=== PATIENT | male | born 1940 | race Caucasian/White ===

== ENCOUNTER 2019-05-03 14:49 | Inpatient (IN) | payer OTHER, MEDICAID ==
[~2019-05-03] VITALS: Ht 177.8 cm; Wt 87.1 kg
--- NOTE | ~2019-05-03 | EKG ---
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
[2019-05-03 14:51] VITALS: BP 89/50
[2019-05-03] MEDS ORDERED: LYRICA150 MG PO (14:56)
[2019-05-03] MEDS ORDERED: NAPROSYN500 M1 PO (14:57)
[2019-05-03] MEDS ORDERED: AMITRIPTYLINE H50 M2 PO (14:57)
[2019-05-03] MEDS ORDERED: ZESTRIL40 MG PO (14:58)
[2019-05-03] MEDS ORDERED: HYDROCHLOROTH12.5 M1 PO (14:59)
[2019-05-03 15:33] LABS: ABSOLUTE LYMPHOCYTES 0.7 thou/uL (0.8-5.3); ABSOLUTE MONOCYTES 0.5 thou/uL (0.0-1.2); ABSOLUTE NEUTROPHILS 2.5 thou/uL (1.6-8.1); BASOPHILS 0.4 %; HEMATOCRIT 38.4 % (42.0-52.0); HEMOGLOBIN 13.1 gm/dL (14.0-18.0); LYMPHOCYTES 18.8 %; MCH 27.5 pg (26.0-34.0); MCHC 34.2 g/dL (28.0-37.0); MCV 80.3 fL (80.0-100.0); MONOCYTES 14.3 %; NUCLEATED RBCS 0 /100WBC; PLATELET COUNT* 113 thou/uL (150-400); POLYS 66.5 %; RBC 4.79 mil/uL (4.50-6.00); RDW-CV 15.1 % (10.5-14.5); WBC 3.7 thou/uL (4.0-11.0)
[2019-05-03 15:44] LABS: APTT 27.7 Seconds (25.0-31.3); PROTIME 10.5 Seconds (9.20-11.50)
[2019-05-03 15:46] LABS: CALCIUM 8.1 mg/dL (8.5-10.1); CREATININE 2.8 mg/dL (0.6-1.3)
[2019-05-03 15:55] LABS: ALBUMIN 3.6 g/dL (3.4-5.0); TOTAL BILIRUBIN 0.6 mg/dL (<0.1-1.0); TOTAL PROTEIN 7.6 g/dL (6.4-8.2)
[2019-05-03 18:00] VITALS: BP 88/38
[2019-05-03 18:01] LABS: INFLUENZA A ANTIGEN Positive (Negative); INFLUENZA B ANTIGEN Negative (Negative)
[2019-05-03 18:05] VITALS: BP 120/66
[2019-05-03 20:00] VITALS: BP 88/51
[2019-05-04 04:27] LABS: ABSOLUTE LYMPHOCYTES 1.2 thou/uL (0.8-5.3); ABSOLUTE MONOCYTES 0.3 thou/uL (0.0-1.2); ABSOLUTE NEUTROPHILS 0.7 thou/uL (1.6-8.1); BASOPHILS 0.4 %; EOSINOPHILS 0.7 %; HEMATOCRIT 30.3 % (42.0-52.0); LYMPHOCYTES 51.9 %; MCH 28.2 pg (26.0-34.0); MCHC 35.8 g/dL (28.0-37.0); MCV 78.7 fL (80.0-100.0); MONOCYTES 15.4 %; MPV 7.7 fl. (7.2-11.1); NUCLEATED RBCS 0 /100WBC; PLATELET COUNT* 86 thou/uL (150-400); POLYS 31.6 %; RBC 3.85 mil/uL (4.50-6.00); RDW-CV 14.9 % (10.5-14.5); WBC 2.2 thou/uL (4.0-11.0)
[2019-05-04 04:34] LABS: POTASSIUM 3.6 mmol/L (3.5-5.1)
[2019-05-04 04:39] LABS: ALBUMIN 2.9 g/dL (3.4-5.0); TOTAL BILIRUBIN 0.4 mg/dL (<0.1-1.0); TOTAL PROTEIN 5.9 g/dL (6.4-8.2)
[2019-05-04 04:42] LABS: HEMOGLOBIN 10.9 gm/dL (14.0-18.0)
[2019-05-04 07:51] VITALS: BP 85/51
[2019-05-04 16:00] VITALS: BP 125/43
[2019-05-05] VITALS: BP 89/44
[2019-05-05 08:10] VITALS: BP 129/62
[2019-05-05] MEDS ORDERED: TAMIFLU30 MG PO (11:15)
[2019-05-05 11:29] VITALS: BP 129/62
[2019-05-05 15:54] VITALS: BP 129/62
== END 2019-05-05 15:40 | disposition home or self-care (01) | DRG 865 ==
LOC: M.ERS 14:49 → M.ORTHSURG 16:52 → M.TBA-ER 16:52 → M.ORTHSURG 18:12 → M.3W 05-04 15:44
PROVIDERS: Emergency Medicine Emergency Medical Services; ADMIT Internal Medicine
DX: J10.2 Influenza due to other identified influenza virus with gastrointestinal manifestations (principal); R65.11 Systemic inflammatory response syndrome (SIRS) of non-infectious origin with acute organ dysfunction; N17.9 Acute kidney failure, unspecified; E44.1 Mild protein-calorie malnutrition; B02.29 Other postherpetic nervous system involvement; I10 Essential (primary) hypertension; D72.819 Decreased white blood cell count, unspecified; M19.90 Unspecified osteoarthritis, unspecified site; F32.9 Major depressive disorder, single episode, unspecified; Z87.891 Personal history of nicotine dependence; Z79.899 Other long term (current) drug therapy; Z68.27 Body mass index [BMI] 27.0-27.9, adult

== ENCOUNTER 2020-05-14 19:54 | Emergency (ER) | payer OTHER, MEDICAID ==
[~2020-05-14] VITALS: Ht 177.8 cm; Wt 83.9 kg
[~2020-05-14 19:54] MED LIST: AMITRIPTYLINE H50 M2 PO; HYDROCHLOROTH12.5 M1 PO; LYRICA150 MG PO; NAPROSYN500 M1 PO; TAMIFLU30 MG PO; ZESTRIL40 MG PO
[2020-05-14 20:34] LABS: ABSOLUTE EOSINOPHILS 0.1 thou/uL (0.0-0.7); ABSOLUTE LYMPHOCYTES 1.3 thou/uL (0.8-5.3); ABSOLUTE MONOCYTES 0.4 thou/uL (0.0-1.2); ABSOLUTE NEUTROPHILS 0.9 thou/uL (1.6-8.1); BASOPHILS 0.7 %; EOSINOPHILS 4.2 %; HEMATOCRIT 38.5 % (42.0-52.0); LYMPHOCYTES 49.5 %; MCH 28.2 pg (26.0-34.0); MCHC 33.7 g/dL (28.0-37.0); MCV 83.7 fL (80.0-100.0); MONOCYTES 12.8 %; MPV 7.5 fl. (7.2-11.1); NUCLEATED RBCS 0 /100WBC; PLATELET COUNT* 100 thou/uL (150-400); POLYS 32.8 %; RDW-CV 13.4 % (10.5-14.5); WBC 2.7 thou/uL (4.0-11.0)
[2020-05-14 20:38] LABS: CALCIUM 8.2 mg/dL (8.5-10.1); CREATININE 1.2 mg/dL (0.6-1.3); POTASSIUM 3.7 mmol/L (3.5-5.1)
[2020-05-14 20:43] LABS: ALBUMIN 3.9 g/dL (3.4-5.0); TOTAL BILIRUBIN 0.6 mg/dL (<0.1-1.0); TOTAL PROTEIN 6.9 g/dL (6.4-8.2)
[2020-05-14 20:44] LABS: URINE BILIRUBIN NEGATIVE (Negative); URINE BLOOD TRACE (Negative); URINE CLARITY CLEAR; URINE COLOR YELLOW; URINE GLUCOSE-RANDOM NEGATIVE (Negative); URINE KETONES NEGATIVE (Negative); URINE LEUKOCYTES-REFLEX NEGATIVE (Negative); URINE NITRITE-REFLEX NEGATIVE (Negative); URINE PROTEIN NEGATIVE (Negative); URINE SPECIFIC GRAVITY 1.025 (1.005-1.030); URINE UROBILINOGEN 0.2 E.U./dl (0.2-1.0)
[2020-05-14 20:46] LABS: APTT 24.9 Seconds (25.0-31.3); INR 1.1; PROTIME 11.4 Seconds (9.20-11.50)
[2020-05-14] MEDS ORDERED: [UNRECOGNIZED DRUG - OTHER] (21:36)
[2020-05-14] MEDS ORDERED: CATAPRES0.1 MG PO (22:53)
[2020-05-14 23:15] VITALS: BP 154/77
--- NOTE | 2020-05-15 11:32 | EKG ---
[place] [address] ELECTROCARDIOGRAM REPORT Name: ALEJANDROKASSI Room: [facility]#: [id number] Admission: 05/14/20 Attend Phys: Discharge: 05/14/20 Date of : 38 Date of Service: 05/14/20 [facility] Report #: [id number] THIS REPORT FOR: //name// 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 : 1940 Requested By: Sanjuana Go Order Number: [id number] MD: Willy Singleton Measurements Intervals [place] Rate: 58 P: 43 HI: 182 QRS: -56 QRSD: 130 T: 62 QT: 463 QTc: 455 Interpretive Statements Sinus rhythm Nonspecific IVCD with LAD Compared to ECG 05/03/2019 14:55:08 No significant changes Electronically Signed On 05-15-2020 11:32:23 [employer]ATING [employer]PERVIS[employer] by Willy Singleton [email or web address] <ELECTRONICALLY SIGNED> By: Willy Singleton MD, [facility] 05/15/20 1132 03 03 Willy Singleton MD, [facility] /EPI
== END 2020-05-14 23:15 | disposition home or self-care (01) ==
LOC: M.ERS 19:54
PROVIDERS: Personal Emergency Response Attendant
DX: I16.0 Hypertensive urgency (principal); I10 Essential (primary) hypertension; M19.90 Unspecified osteoarthritis, unspecified site; Z88.8 Allergy status to other drugs, medicaments and biological substances

== ENCOUNTER 2021-01-18 10:16 | Emergency (ER) | payer OTHER, MEDICAID ==
[~2021-01-18] VITALS: Ht 177.8 cm; Wt 83.5 kg
[~2021-01-18 10:16] MED LIST changes: +CATAPRES0.1 MG PO; +[UNRECOGNIZED DRUG - OTHER]
--- NOTE | 2021-01-18 10:27 | EKG ---
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 01/18/21 1027 1025 1025 Ole Jernigan MD, [facility] /EPI
[2021-01-18 10:43] LABS: ABSOLUTE EOSINOPHILS 0.1 thou/uL (0.0-0.7); ABSOLUTE LYMPHOCYTES 1.1 thou/uL (0.8-5.3); ABSOLUTE MONOCYTES 0.3 thou/uL (0.0-1.2); ABSOLUTE NEUTROPHILS 1.1 thou/uL (1.6-8.1); EOSINOPHILS 3.8 %; HEMATOCRIT 32.7 % (42.0-52.0); HEMOGLOBIN 11.3 gm/dL (14.0-18.0); MCH 29.3 pg (26.0-34.0); MCHC 34.4 g/dL (28.0-37.0); MCV 85.1 fL (80.0-100.0); MONOCYTES 10.7 %; MPV 7.8 fl. (7.2-11.1); NUCLEATED RBCS 0 /100WBC; PLATELET COUNT* 85 thou/uL (150-400); POLYS 41.5 %; RBC 3.84 mil/uL (4.50-6.00); RDW-CV 13.8 % (10.5-14.5); WBC 2.6 thou/uL (4.0-11.0)
[2021-01-18 10:51] LABS: CALCIUM 8.2 mg/dL (8.5-10.1); CREATININE 1.4 mg/dL (0.6-1.3); POTASSIUM 4.1 mmol/L (3.5-5.1)
[2021-01-18 10:55] LABS: ALBUMIN 3.7 g/dL (3.4-5.0); TOTAL BILIRUBIN 0.7 mg/dL (<0.1-1.0); TOTAL PROTEIN 6.8 g/dL (6.4-8.2)
[2021-01-18 13:48] VITALS: BP 145/70
--- NOTE | 2021-01-19 16:04 | EKG ---
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
== END 2021-01-18 13:49 | disposition home or self-care (01) ==
LOC: M.ERS 10:16
PROVIDERS: Physician Assistant
DX: R20.2 Paresthesia of skin (principal); Z20.822 Contact with and (suspected) exposure to COVID-19; R00.2 Palpitations; R07.89 Other chest pain; I10 Essential (primary) hypertension; M19.90 Unspecified osteoarthritis, unspecified site; M06.9 Rheumatoid arthritis, unspecified; Z88.8 Allergy status to other drugs, medicaments and biological substances; Z79.899 Other long term (current) drug therapy